=== PATIENT | female | born 1940 | race Caucasian/White ===

== ENCOUNTER 2017-12-14 18:50 | Emergency (ER) | payer OTHER ==
[~2017-12-14] VITALS: Ht 160 cm; Wt 81.4 kg
[~2017-12-14 18:50] MED LIST: ASPIR 8181 M1 PO; Aspirin E.C. PO; BABY ASPIRIN81 M1 PO; FIBER LAXATIV0.52 GM PO; Fiber Therapy PO; GABAPENTIN400 MG PO; HYDROCHLOROTHIA25 MG PO; LEVOTHROID75 MCG PO; LISINOPRIL20 MG PO; Levothroid,Synthroid PO; Lovenox SC; NEURONTIN400 MG PO; Neurontin PO; POLYETHYLENE GL17 GM PO; PRINIVIL20 MG PO; SYNTHROID75 MCG PO; TRAMADOL HCL50 MG PO; TYLENOL EXTRA500 MG PO; TYLENOL WITH C1 EACH PO; ZOFRAN4 MG PO; Zestril,Prinivil PO; celeBREX PO
[2017-12-14 19:33] LABS: HEMATOCRIT 43.6 % (36.0-46.0); HEMOGLOBIN 14.8 G/DL (11.9-15.5); MCH 31.6 PG (29.0-34.0); MCHC 33.9 G/DL (30.0-36.0); PLATELET COUNT 250 K/uL (156-360); RBC DIS.WIDTH-CV 13.7 % (11.8-14.6); RBC DIS.WIDTH-SD 46.1 % (39-53); RED BLOOD COUNT 4.69 M/uL (3.80-5.20); WHITE BLOOD COUNT 6.7 K/uL (4.1-10.2)
[2017-12-14 19:44] LABS: CHLORIDE 104 mEq/L (99-109); INTER. NORMALIZED RATIO 1.1; POTASSIUM 4.3 mEq/L (3.7-5.4); SODIUM 142 mEq/L (136-147)
[2017-12-14 19:46] LABS: GLUCOSE 109 mg/dL (70-99)
[2017-12-14 19:47] LABS: PTT 26.8 SEC (25-37)
[2017-12-14 19:50] LABS: CREATININE 1.2 mg/dL (0.6-1.3); GFR ESTIMATE (CALCULATED) 46 mL/min/
[2017-12-14 19:51] LABS: UREA NITROGEN (BUN) 24 mg/dL (9-23)
[2017-12-14 21:47] VITALS: BP 133/70
== END 2017-12-14 21:47 | disposition home or self-care (01) ==
LOC: EME 18:50
PROVIDERS: Emergency Medicine
DX: S00.83XA Contusion of other part of head, initial encounter (principal); S00.211A Abrasion of right eyelid and periocular area, initial encounter; W18.30XA Fall on same level, unspecified, initial encounter; Z79.82 Long term (current) use of aspirin; I10 Essential (primary) hypertension; E03.9 Hypothyroidism, unspecified; Z96.651 Presence of right artificial knee joint; Z87.891 Personal history of nicotine dependence
CPT/HCPCS: 70150; 70450; 80048; 85027; 85610; 85730; 99281; 99284